=== PATIENT | male | born 1990 | race Caucasian/White ===

== ENCOUNTER 2017-10-09 22:11 | Emergency (ER) | payer OTHER ==
[2017-10-09] MEDS ORDERED: Ketorolac 60 MG/2 ML SDV IM ONE (22:48)
--- NOTE | 2017-10-09 22:52 | EDM.PDOC ---
ED HPI GENERAL MEDICAL PROBLEM - General Chief Complaint: Chest Pain Stated Complaint: RT RIBCAGE PAIN Time Seen by Provider: 10/09/17 22:44 - History of Present Illness INITIAL COMMENTS - FREE TEXT/NARRATIVE: HISTORY AND PHYSICAL: History of present illness: The patient is a healthy 27-year-old male who presents with history of an injury to his right anterior ribs that occurred 5 days ago while at work. Patient says he was moving a piece of iron when he gave way he fell backwards and landed on top of him impacting his right anterior rib cage. Since that time he has had pain in the area which varies with particular movements but he has not had fevers chills shortness of breath or abdominal issues. He's been using [id number] meds but seeks evaluation for persistent pain. Not noticed any bruising in the area he has no mid chest pain no abdominal pain and no back pain from the fall. Review of systems: As per history of present illness and below otherwise all systems reviewed and negative. Past medical history: As per history of present illness and as reviewed below otherwise noncontributory. Surgical history: As per history of present illness and as reviewed below otherwise noncontributory. Social history: No reported history of drug or alcohol abuse. Family history: As per history of present illness and as reviewed below otherwise noncontributory. Physical exam: Gen.: Well-developed well-nourished man who is nontoxic and speaking clearly and easily in the ED. Vital signs of been reviewed by me HEENT: Atraumatic, normocephalic, negative for conjunctival pallor or scleral icterus, mucous membranes moist, throat clear, neck supple, nontender, trachea midline. Lungs: Clear to auscultation, breath sounds equal bilaterally, no work or breathing or sensory muscle use, there is no anterior chest wall ecchymosis erythema or skin changes, there is tenderness to palpation of the anterior chest wall on the right just underneath the breast without any crepitus or deformities. Heart: S1S2, regular rate and rhythm no overt murmurs Abdomen: Soft, nondistended, nontender. Negative for masses or rebound or guarding and bowel sounds are normoactive Pelvis: Deferred Genitourinary: Deferred. Rectal: Deferred. Extremities: Atraumatic, negative for cords or calf pain. Neurovascular unremarkable. Neuro: Awake, alert, oriented. Cranial nerves II through XII unremarkable. Cerebellum unremarkable. Motor and sensory unremarkable throughout. Exam nonfocal. Diagnostics: Right ribs with chest x-ray Therapeutics: Toradol Impression: Right chest wall injury/contusion Definitive disposition and diagnosis as appropriate pending reevaluation and review of above. Right Chest Pain Score (Numeric/FACES): 7 - Related Data Allergies Allergy/AdvReac Type Severity Reaction Status Date / Time No Known Allergies Allergy Verified 10/09/17 22:33 Home Meds: Home Meds . [No Known Home Meds] 10/09/17 [History] Past Medical History - Past Health History Medical/Surgical History: Denies Medical/Surgical History Social & Family History - Family History Family Medical History: Noncontributory - Tobacco Use Smoking Status *Q: Current Some Day Smoker Years of Tobacco use: 5 Packs/Tins Daily: 0 - Caffeine Use Caffeine Use: Reports: Coffee, Energy Drinks - Recreational Drug Use Recreational Drug Use: No ED ROS GENERAL - Review of Systems Review Of Systems: ROS reveals no pertinent complaints other than HPI. ED EXAM, GENERAL - Physical Exam Exam: See Below (See dictation) Course - Vital Signs Last Recorded V/S: Last Vital Signs Temp 36.7 C 10/09/17 22:29 Pulse 77 10/09/17 22:29 Resp 14 10/09/17 22:29 BP 130/60 10/09/17 22:29 Pulse Ox 97 10/09/17 22:29 - Orders/Labs/Meds Orders: Active Orders 24 hr Category Date Time Status Ribs 2V w Chest Rt [CR] Stat Exams 10/09/17 22:48 Taken Meds: Medications Discontinued Medications Generic Name Dose Route Start Last Admin Trade Name Freq PRN Reason Stop Dose Admin Ketorolac Tromethamine 60 mg 10/09/17 22:48 Toradol IM 10/09/17 22:49 ONETIME ONE Departure - Departure Time of Disposition: 23:28 Disposition: Home, Self-Care 01 Condition: Good Clinical Impression: Chest wall contusion Qualifiers: Encounter type: initial encounter Laterality: right Qualified Code(s): S20.211A - Contusion of right front wall of thorax, initial encounter - Discharge Information Referrals: PCP,None [Primary Care Provider] - Forms: ED Department Discharge Additional Instructions: The following information is given to patients seen in the emergency department who are being discharged to home. This information is to outline your options for follow-up care. We provide all patients seen in our emergency department with a follow-up referral. The need for follow-up, as well as the timing and circumstances, are variable depending upon the specifics of your emergency department visit. If you don't have a primary care physician on staff, we will provide you with a referral. We always advise you to contact your personal physician following an emergency department visit to inform them of the circumstance of the visit and for follow-up with them and/or the need for any referrals to a consulting specialist. The emergency department will also refer you to a specialist when appropriate. This referral assures that you have the opportunity for followup care with a specialist. All of these measure are taken in an effort to provide you with optimal care, which includes your followup. Under all circumstances we always encourage you to contact your private physician who remains a resource for coordinating your care. When calling for followup care, please make the office aware that this follow-up is from your recent emergency room visit. If for any reason you are refused follow-up, please contact the [facility] emergency department at and ask to speak to the emergency department charge nurse. [facility] Primary care- Internal Medicine and Family [address] [address] Use [id number] Tylenol or ibuprofen for pain and use ice to area after activities and work. Please call and follow-up with one of our providers in the clinic for further care and evaluation and return to ER as needed and as discussed. - My Orders Last 24 Hours: My Active Orders 10/09/17 22:48 Ribs 2V w Chest Rt [CR] Stat - Assessment/Plan Last 24 Hours: My Active Orders 10/09/17 22:48 Ribs 2V w Chest Rt [CR] Stat
--- NOTE | 2017-10-10 13:24 | CR ---
EXAM DATE: 10/09/17 PATIENT'S AGE: 27 Patient: LARRY LUNDBERG Facility: [place], [place] Site . Site : 1990 Study: XRay Chest Right Ribs/Chest [id number]/5/2017 11:06:03 PM Ordering Physician: Paola Maurer Final Report: INDICATION: Fell, right sided chest pain TECHNIQUE: Chest radiograph, Rib radiograph 4 views right COMPARISON: None FINDINGS: Cardiovascular and mediastinum: Heart size and vasculature are normal in caliber and appearance. Mediastinum is within normal limits. Lungs and pleural space: Both lungs are unremarkable in appearance. No sign of pleural effusion. No pneumothorax is seen. Ribs: No definite acute fractures are identified in the visualized ribs. No osseous rib lesions noted. IMPRESSION: 1. Unremarkable chest radiograph. 2. No definite radiographic evidence of acute rib injuries seen. Dictated by: David Matute MD @ 10/09/2017 23:12:31 (Electronic Signature) Report Signed by Proxy. TUTU
== END 2017-10-09 23:58 | disposition home or self-care (01) ==
LOC: MW.ED 22:11
DX: S20.211A Contusion of right front wall of thorax, initial encounter (principal); F17.200 Nicotine dependence, unspecified, uncomplicated; W19.XXXA Unspecified fall, initial encounter
CPT/HCPCS: 71101; 96372; 99284; J1885; 99283